=== PATIENT | male | born 1950 | race Caucasian/White ===

== ENCOUNTER → 2017-12-02 01:00 | Outpatient (CLI) | payer MEDICARE, SELFPAY ==
[2017-12-04 17:03] LABS: Testosterone, Free 3.09 ng/dL (3.47-13.0); Testosterone, Total 147 ng/dL (240-950)
== END ==
PROVIDERS: PCP Emergency Medicine; Visit Provider Emergency Medicine
DX: E29.1 Testicular hypofunction (principal)
CPT/HCPCS: 36415; 84402; 84403

== ENCOUNTER 2018-01-05 07:09 | Outpatient (CLI) | payer MEDICARE, SELFPAY ==
[2018-01-05 09:21] LABS: TSH 3.92 uIU/mL (0.358-3.74)
[2018-01-06 09:35] LABS: FSH 26.1 mIU/ml (1.4-18.1)
[2018-01-06 09:48] LABS: LH 5.9 mIU/ml (2-9)
[2018-01-08 12:35] LABS: Testosterone, Free 3.93 ng/dL (3.47-13.0); Testosterone, Total 187 ng/dL (240-950)
== END 2018-01-05 07:29 ==
PROVIDERS: PCP Emergency Medicine; Visit Provider Emergency Medicine
DX: E29.1 Testicular hypofunction (principal)
CPT/HCPCS: 36415; 84402; 84403; 83001; 83002; 84146; 84443

== ENCOUNTER 2018-05-20 00:38 | Outpatient (CLI) | payer MEDICARE, SELFPAY ==
[2018-05-20 08:30] LABS: CREATININE 1.07 mg/dL (0.70-1.30)
[2018-05-20] MEDS: Gadoterate meglumine 20 ML VIAL IVP (08:53)
--- NOTE | 2018-05-20 09:13 | DI.MRI_ITS ---
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 ABNORMALITY OR TUMOR BRAIN MRI: Pre and post contrast MRI of the brain according to the pituitary protocol was performed. There are no priors for comparison. The ventricles and sulci are consistent with the patient's age. There is normal signal in the brain parenchyma. The diffusion weighted images have a normal appearance. No intracranial hemorrhage is seen. There is no acute midline shift or mass effect. 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 There is a normal flow void in the [place]. The pituitary gland has a normal appearance. No evidence of a pituitary mass is seen. The infundibulum and optic chiasm are unremarkable. Following contrast administration, there is homogeneous enhancement of the pituitary gland and infundibulum. No suprasellar mass is seen. No intraparenchymal enhancing lesion or mass is identified. No fluid levels are seen in the visualized paranasal sinuses. IMPRESSION: 1. Normal appearance of the pituitary, sella and suprasellar region. No evidence of a pituitary mass or abnormality. 2. No evidence of an acute infarct or intracranial mass.
== END 2018-05-20 00:58 ==
PROVIDERS: PCP Emergency Medicine; Visit Provider Internal Medicine Endocrinology, Diabetes & Metabolism
DX: E29.1 Testicular hypofunction (principal); Z86.39 Personal history of other endocrine, nutritional and metabolic disease; Z97.0 Presence of artificial eye
CPT/HCPCS: 36415; 70553; 82565

== ENCOUNTER 2018-10-25 02:16 | Outpatient (CLI) | payer MEDICARE, SELFPAY ==
[2018-10-27 12:32] LABS: Testosterone, Total 611 ng/dL (240-950)
== END 2018-10-25 02:36 ==
PROVIDERS: PCP Emergency Medicine; Visit Provider Internal Medicine Endocrinology, Diabetes & Metabolism
DX: Z86.39 Personal history of other endocrine, nutritional and metabolic disease (principal); E29.1 Testicular hypofunction
CPT/HCPCS: 36415; 84403

== ENCOUNTER 2019-01-24 01:03 | Outpatient (CLI) | payer MEDICARE, SELFPAY ==
[2019-01-24 07:39] LABS: HCT 51.7 % (40.0-50.0)
[2019-01-25 10:17] LABS: PSA, Diagnostic 0.9 ng/ml (0-6.5)
== END 2019-01-24 01:23 ==
PROVIDERS: PCP Emergency Medicine; Visit Provider Internal Medicine Endocrinology, Diabetes & Metabolism
DX: E34.9 Endocrine disorder, unspecified (principal)
CPT/HCPCS: 36415; 84153; 85014

== ENCOUNTER 2019-05-16 07:01 | Outpatient (CLI) | payer MEDICARE, SELFPAY ==
[2019-05-16 07:41] LABS: HCT 49.8 % (40.0-50.0)
[2019-05-18 15:09] LABS: Testosterone, Total 379 ng/dL (240-950)
== END 2019-05-16 07:21 ==
PROVIDERS: PCP Emergency Medicine; Visit Provider Internal Medicine Endocrinology, Diabetes & Metabolism
DX: E29.1 Testicular hypofunction (principal)
CPT/HCPCS: 36415; 84403; 85014

== ENCOUNTER 2019-05-19 09:58 | Outpatient (CLI) | payer MEDICARE, SELFPAY | END 2019-05-19 10:18 | PROVIDERS: PCP Emergency Medicine; Visit Provider Emergency Medicine | DX: I48.91 Unspecified atrial fibrillation (principal) | CPT/HCPCS: 93225 ==

== ENCOUNTER 2019-05-20 12:19 | Outpatient (CLI) | payer MEDICARE, SELFPAY ==
--- NOTE | 2019-05-23 08:21 | W.HOLTRPT ---
Date of service: 05/23/19 Time of Service: 08:21 Holter Monitor Report Holter Monitor Note: This is a 1 day Holter monitor ordered for indication of atrial fibrillation. ?The patient was in atrial fibrillation for the entirety of the recording. The maximal heart rate was 232bpm. ?There were 3 episodes of ventricular tachycardia with the longest lasting 7 beats. ?There were rare (less than 1%) single ventricular ectopic beats. ?There were 2 significant pauses the longest lasting 2.85 seconds. ?There were no episodes of high degree heart block.
== END 2019-05-20 12:39 ==
PROVIDERS: PCP Emergency Medicine; Visit Provider Emergency Medicine
DX: I48.91 Unspecified atrial fibrillation (principal)
CPT/HCPCS: 93226

== ENCOUNTER 2019-05-23 01:13 | Outpatient (CLI) | payer MEDICARE, SELFPAY | END 2019-05-23 01:33 | PROVIDERS: PCP Emergency Medicine; Visit Provider Internal Medicine Endocrinology, Diabetes & Metabolism | DX: I48.91 Unspecified atrial fibrillation (principal) | CPT/HCPCS: 93227 ==

== ENCOUNTER 2019-05-25 07:00 | Outpatient (CLI) | payer MEDICARE, SELFPAY ==
[2019-05-25 12:54] LABS: TSH 1.52 uIU/mL (0.36-3.74)
== END 2019-05-25 07:20 ==
PROVIDERS: PCP Emergency Medicine; Visit Provider Emergency Medicine
DX: E03.9 Hypothyroidism, unspecified (principal); I48.91 Unspecified atrial fibrillation
CPT/HCPCS: 36415; 84443

== ENCOUNTER 2019-06-08 02:27 | Outpatient (CLI) | payer MEDICARE, SELFPAY ==
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
== END 2019-06-08 02:47 ==
PROVIDERS: PCP Emergency Medicine; Visit Provider Emergency Medicine
DX: I48.91 Unspecified atrial fibrillation (principal); I51.7 Cardiomegaly; I34.8 Other nonrheumatic mitral valve disorders
CPT/HCPCS: 93306

== ENCOUNTER 2019-06-22 07:55 | Outpatient (CLI) | payer MEDICARE, SELFPAY | END 2019-06-22 08:15 | PROVIDERS: PCP Emergency Medicine; Visit Provider Internal Medicine Cardiovascular Disease | DX: I48.91 Unspecified atrial fibrillation (principal); I10 Essential (primary) hypertension; Z79.01 Long term (current) use of anticoagulants | CPT/HCPCS: 99203; 99214; 93005; 93010 ==

== ENCOUNTER 2019-09-12 02:06 | Outpatient (CLI) | payer MEDICARE, SELFPAY ==
[2019-09-12 07:47] LABS: HCT 47.1 % (40.0-50.0)
[2019-09-15 15:17] LABS: Testosterone, Free 6.72 ng/dL (3.28-12.2); Testosterone, Total 320 ng/dL (240-950)
== END 2019-09-12 02:26 ==
PROVIDERS: PCP Emergency Medicine; Visit Provider Internal Medicine Endocrinology, Diabetes & Metabolism
DX: E29.1 Testicular hypofunction (principal)
CPT/HCPCS: 36415; 84402; 84403; 85027; 85014

== ENCOUNTER → 2019-09-19 09:27 | Outpatient (BNVA) | payer MEDICARE, SELFPAY | PROVIDERS: PCP Emergency Medicine; Referring Provider Emergency Medicine; Visit Provider Internal Medicine Cardiovascular Disease | DX: I48.91 Unspecified atrial fibrillation (principal); I10 Essential (primary) hypertension; E78.5 Hyperlipidemia, unspecified | CPT/HCPCS: 99214 ==

== ENCOUNTER 2019-12-26 02:50 | Outpatient (CLI) | payer MEDICARE, SELFPAY ==
[2019-12-26 08:47] LABS: HCT 48.9 % (40.0-50.0); HGB 17.1 g/dL (13.5-17.5)
[2019-12-26 17:11] LABS: PSA, Screening 0.4 ng/mL (0.0-6.5)
[2019-12-29 12:44] LABS: Testosterone, Free 6.86 ng/dL (3.28-12.2); Testosterone, Total 490 ng/dL (240-950)
== END 2019-12-26 03:10 ==
PROVIDERS: PCP Emergency Medicine; Visit Provider Internal Medicine Endocrinology, Diabetes & Metabolism
DX: E29.1 Testicular hypofunction (principal)
CPT/HCPCS: 36415; 84153; 84402; 84403; 85014; 85018

== ENCOUNTER 2019-12-28 12:09 | Emergency (ER) | payer MEDICARE, SELFPAY ==
[2019-12-28 12:17] VITALS: BP 129/78; PULSE 73; RESP 16; TEMP 36.5; O2SAT 97
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
[2019-12-28] MEDS: Acetaminophen 500 MG TAB 1000 MG PO (13:14)
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
[2019-12-28 14:10] VITALS: BP 117/82; PULSE 92; RESP 16; TEMP 36.5; O2SAT 92
== END 2019-12-28 14:23 | disposition home or self-care (01) ==
LOC: ER 14:36
PROVIDERS: Emergency Provider Emergency Medicine; PCP Emergency Medicine
DX: S13.4XXA Sprain of ligaments of cervical spine, initial encounter (principal); V43.52XA Car driver injured in collision with other type car in traffic accident, initial encounter; I10 Essential (primary) hypertension
CPT/HCPCS: 99283; 72040; L0172

== ENCOUNTER 2019-12-30 13:12 | Outpatient (REF) | payer MEDICARE, SELFPAY ==
[2019-12-30 21:27] LABS: Calculated LDL 119 mg/dL (<100); Cholesterol 186 mg/dL (<200); HDL Cholesterol 34 mg/dL (40-60); TSH 2.38 uIU/mL (0.36-3.74); Triglyceride 166 mg/dL (<150)
== END 2019-12-30 13:32 ==
LOC: LBN ADD 13:12
PROVIDERS: PCP Emergency Medicine; Visit Provider Emergency Medicine
DX: E03.9 Hypothyroidism, unspecified (principal)
CPT/HCPCS: 80061; 84443

== ENCOUNTER → 2020-03-16 10:25 | Outpatient (BNVA) | payer MEDICARE, SELFPAY | PROVIDERS: PCP Emergency Medicine; Referring Provider Emergency Medicine; Visit Provider Physical Therapy Assistant | DX: Z12.11 Encounter for screening for malignant neoplasm of colon (principal); Z86.010 Personal history of colon polyps ==

== ENCOUNTER → 2020-03-19 13:18 | Outpatient (BNVA) | payer MEDICARE, SELFPAY | PROVIDERS: PCP Emergency Medicine; Referring Provider Emergency Medicine; Visit Provider Internal Medicine Cardiovascular Disease | DX: I48.91 Unspecified atrial fibrillation (principal); I10 Essential (primary) hypertension; E78.5 Hyperlipidemia, unspecified; Z01.810 Encounter for preprocedural cardiovascular examination; Z79.01 Long term (current) use of anticoagulants | CPT/HCPCS: 99214 ==

== ENCOUNTER 2020-03-22 04:37 | Outpatient (CLI) | payer MEDICARE, SELFPAY ==
[2020-03-23 22:13] LABS: SARS-CoV-2 RNA Source Nasal/Nares
[2020-03-23 22:14] LABS: SARS-CoV-2 RNA Not Detected (NotDetected)
== END 2020-03-22 04:57 ==
PROVIDERS: PCP Emergency Medicine; Visit Provider Surgery
DX: Z11.59 Encounter for screening for other viral diseases (principal); Z01.818 Encounter for other preprocedural examination
CPT/HCPCS: U0003

== ENCOUNTER 2020-03-26 07:46 | Day surgery (SDC) | payer MEDICARE, SELFPAY ==
--- NOTE | 2020-03-26 06:59 | W.COLOREPORT ---
Date of service: 03/26/20 Time of Service: 10:11 Colonoscopy Report Date of procedure: 03/26/20 Pre-op diagnosis general: Colon Cancer Screening Post-op diagnosis procedure note: other (one small polyp) Procedure: Colonoscopy with polypectomy Surgeon: Manda Del Angel Anesthesia proc note operative: other (General/ASA 2/Grace Mariee CRNA) Estimated blood loss (mL): 3 Pathology: other (rectal polyp) Complications: None Disposition: same day Indications: The patient is here for Colonoscopy pre-op. His last screening was 10+ years ago and was remarkable for polyps. He has no family history of colon cancer. He has not had any bowel habit changes. -Discussed colonoscopy bowel prep as well as the procedure. Discussed possible complications of the procedure to include bleeding, pain, perforation, missed small lesion/polyp, sore throat, aspiration and adverse reaction to the medications. Questions were answered to patient?s satisfaction. Also, spoke with his Jesse regarding her questions and concerns. No guarantees were implied or given Prep: Miralax/Dulcolax Procedure Start Time: : Procedure End Time: 10:43 Retraction Time: 23 minutes Findings: one small rectal polyp Procedure Description: After informed consent was obtained the patient was taken to the procedure room and placed in a left decubitous position. Monitors were applied and a time out was done. The patients name, date of , procedure, allergies to medications and metal in their body was reviewed. The patient was then sedated. Once sedated and comfortable a rectal exam was done. External exam was normal. Internal exam revealed a normal sphincter tone and no palpable masses. The prostate felt smooth. The scope was then introduced and retro-flexed. No internal hemorrhoids were identified. The scope was then advanced to the cecum without difficulty. The ileocecal valve and appendiceal orifice were identified. The prep was adequate. The scope was then slowly retracted over 23 minutes back into the rectum. One polyp was removed with cold forceps in the rectum. There were no diverticula. The scope was removed and the patient was woken up and taken back to Same day surgery in stable condition. The patient tolerated the procedure well and there were no immediate complications. Follow up: Follow up colonoscopy recommendation will depend on the pathology results
--- NOTE | 2020-03-26 07:00 | W.PM.DSUDISC ---
Discharge Plan Disposition Patient Disposition: HOME Condition: Good Discharge Details Reason For Visit: Colon Cancer Screening Attending Provider: Manda Del Angel Primary Care Provider: Alejo Ceja Home Meds and New Rx's Prescriptions: Continued levothyroxine 50 mcg tablet 50 mcg PO DAILY Qty: 90 RF: 4 lisinopril 20 mg tablet 20 mg PO DAILY Qty: 90 RF: 4 Eliquis 5 mg tablet 5 mg PO BID Qty: 60 RF: 6 aspirin [Aspirin Low-Strength] 81 MG tablet,chewable 81 mg PO DAILY RF: 0 multivitamin [Daily Multi-Vitamin] 1 EACH tablet 1 ea PO DAILY RF: 0 ascorbic acid (vitamin C) [Vitamin C] 500 MG tablet 500 mg PO DAILY RF: 0 testosterone cypionate 200 mg/mL oil See Rx Instructions IM QWEEK RF: 0 pravastatin 40 mg tablet 40 mg PO DAILY Qty: 90 RF: 3 metoprolol succinate 100 mg tablet extended release 24 hr 100 mg PO DAILY Qty: 90 RF: 12 loratadine 10 MG tablet 10 mg PO DAILY RF: 0 Discontinued polyethylene glycol 3350 17 gram/dose powder 238 g PO ONCE Qty: 238 RF: 0 bisacodyl [Dulcolax (bisacodyl)] 5 mg tablet,delayed release (DR/EC) 5 mg PO ONCE Qty: 4 RF: 0 Discharge Instructions Instructions: Colorectal Polyps (DC) Additional Instructions: Findings: one small polyp Follow up: will depend on final pathology result. You will receive a letter in the mail with the recommendations Please call if you develop: fevers >101.5 Nausea or Vomiting Abdominal pain that is not transient DAY SURGERY UNIT POST ENDOSCOPY INSTRUCTIONS 1. Because there will be medication in your system for the next 24 hours, you may feel a little sleepy. Your coordination will be affected. Therefore: a. Do not drive or operate dangerous equipment for 24 hours. b. Do not drink alcohol beverages for 24 hours (not even beer). c. Plan to go home and rest for the day. 2. Generally there are no restrictions on your activity after a day or so has gone by, but you may feel a bit fatigued for a few days. 3 After you arrive home you may have a light meal and return to a normal diet as you can tolerate it without feeling sick to your stomach. 4. After surgery, you may feel pain or discomfort. This should be only transient, but if it persists please contact your doctor. 5. If there are any questions regarding the findings of your procedure, please feel free to contact your doctor. 6. If you are unable to contact your doctor with a problem, contact the hospital at [phone]. 7. Continue all your regular medications unless directed otherwise. I understand the above instructions and have no questions. Signature of Patient or Responsible Adult Escort Date/Time Name of Responsible Adult Escort Signature of Nurse Date/Time Activity:: Activity as Tolerated Diet:: As Tolerated Discharge Orders Discharge Orders: Discharge Order (Routine); Ordered 03/26/20 Ordered By: Manda Del Angel
[2020-03-26 08:35] VITALS: BP 141/73; PULSE 76; RESP 20; TEMP 35.4; O2SAT 97
[2020-03-26] MEDS: Lactated Ringers 1,000 ML 80 ML IV (09:00)
--- NOTE | 2020-03-26 10:43 | BOWEL_PTH ---
PATIENT: Dennis Staton LOC: [facility] U#:[id number] AGE/SX: 70/M ROOM: RE03/26/[address]: Manda Del Angel MD : 1950 BED: DIS: 03/26/2020 SPEC #: [id number] RECD: 03/26/20 12:55 STATUS: YOUSUF REQ #: [id number] DEVON: 03/26/20 10:[address]: Manda Del Angel DEPT: Surgical Specimen RECD BY: Roxy Wilson ENTERED: 03/26/20 12:56 SP TYPE: Bowel OTHR DR: Alejo Ceja DO Tissues: 1 - BIOPSY BOWEL Procedures: GROSS AND MICRO LEVEL 4 Comments: [id number]
[2020-03-26 11:23] VITALS: BP 118/86; PULSE 87; RESP 18; TEMP 36.2; O2SAT 97
== END 2020-03-26 11:53 | disposition home or self-care (01) ==
LOC: SUR 07:46
PROVIDERS: PCP Emergency Medicine; Visit Provider Surgery
PROC: 0DJD8ZZ Inspection of Lower Intestinal Tract, Via Natural or Artificial Opening Endoscopic (ICD-10-PCS; CPT 45378; principal; 2020-03-26 10:00)
DX: Z12.11 Encounter for screening for malignant neoplasm of colon (principal); K62.1 Rectal polyp
CPT/HCPCS: 45380; 88305; J2001; J2704

== ENCOUNTER 2020-05-14 02:37 | Outpatient (CLI) | payer MEDICARE, SELFPAY ==
[2020-05-14 08:19] LABS: Abs Immature Grans 0.04 10^3/uL (0.0-0.06); Absolute Basophil Count 0.13 10^3/uL (0.0-0.2); Absolute Eosinophil Count 0.21 10^3/uL (0.0-0.7); Absolute Monocyte Count 0.57 10^3/uL (0.1-0.8); Absolute Neutrophil Count 4.78 10^3/uL (1.2-6.7); Basophils % 1.8; Eosinophils % 2.9; HCT 49.5 % (40.0-50.0); HGB 16.9 g/dL (13.5-17.5); Immature Grans % 0.5; Lymphocytes % 21.8; MCH 30.5 pg (27.0-33.0); MCHC 34.1 % (32.0-36.0); MCV 89.4 fL (80-95); Monocytes % 7.8; Neutrophils % 65.2; Nucleated RBC 0 %; Platelet Count 171 10^3/uL (130-400); RBC 5.54 10^6/uL (4.36-5.78); RDW 11.9 % (11.8-14.1); RDW-SD 38.8 fL; WBC 7.33 10^3/uL (4.4-10.8)
[2020-05-14 09:16] LABS: Vitamin D 25 Total 34.8 ng/ml (30-100)
[2020-05-14 09:23] LABS: ALT 27 U/L (16-63); AST 29 U/L (15-37); Albumin 4.3 g/dL (3.4-5.0); Alkaline Phosphatase 66 U/L (46-116); Anion Gap 7.2 mmol/L (3-11); BUN 12 mg/dL (7-18); Bilirubin, Total 1.5 mg/dL (0.2-1.0); CO2 29.8 mmol/L (21.0-32.0); CREATININE 1.02 mg/dL (0.70-1.30); Calcium 8.7 mg/dL (8.5-10.1); Calculated LDL 98 mg/dL (<100); Chloride 101 mmol/L (98-107); Cholesterol 166 mg/dL (<200); Glucose 132 mg/dL (74-106); HDL Cholesterol 38 mg/dL (40-60); Potassium 4.8 mmol/L (3.5-5.1); Sodium 138 mmol/L (136-145); TSH 4.22 uIU/mL (0.36-3.74); Total Protein 7.4 g/dL (6.4-8.2); Triglyceride 150 mg/dL (<150)
[2020-05-14 09:41] LABS: FREE T4 0.93 ng/dL (0.76-1.46)
[2020-05-14 17:06] LABS: PSA, Screening 0.5 ng/mL (0.0-6.5)
[2020-05-17 15:44] LABS: Testosterone, Free 8.35 ng/dL (3.28-12.2); Testosterone, Total 348 ng/dL (240-950)
== END 2020-05-14 02:57 ==
PROVIDERS: PCP Emergency Medicine; Visit Provider Internal Medicine Endocrinology, Diabetes & Metabolism
DX: E03.9 Hypothyroidism, unspecified (principal); E78.01 Familial hypercholesterolemia; E55.9 Vitamin D deficiency, unspecified; R73.09 Other abnormal glucose; R53.82 Chronic fatigue, unspecified; E29.1 Testicular hypofunction; Z85.46 Personal history of malignant neoplasm of prostate
CPT/HCPCS: 36415; 80053; 80061; 82306; 84153; 84402; 84403; 83036; 84439; 84443; 85025

== ENCOUNTER 2020-08-29 03:35 | Outpatient (CLI) | payer MEDICARE, SELFPAY ==
[2020-08-29 07:43] LABS: HCT 46.3 % (40.0-50.0); HGB 16.2 g/dL (13.5-17.5)
[2020-08-29 07:53] LABS: Hemoglobin A1C 5.6 % (<5.7)
== END 2020-08-29 03:36 | disposition home or self-care (01) ==
LOC: LBO 03:35
PROVIDERS: PCP Emergency Medicine; Visit Provider Internal Medicine Endocrinology, Diabetes & Metabolism
DX: E03.9 Hypothyroidism, unspecified (principal); E29.1 Testicular hypofunction; E55.9 Vitamin D deficiency, unspecified; E78.01 Familial hypercholesterolemia; R53.82 Chronic fatigue, unspecified
CPT/HCPCS: 36415; 83036; 84443; 85014; 85018

== ENCOUNTER 2021-02-08 03:42 | Outpatient (CLI) | payer MEDICARE, SELFPAY ==
--- NOTE | 2021-02-08 08:00 | DI.US_ITS ---
Exam(s) US ABDOMEN EXAM: US ABDOMEN CLINICAL HISTORY: fatty liver,K76.0 TECHNIQUE: Ultrasound performed using standard protocol. COMPARISON: US US ECHOCARDIOGRAM from 06/08/2019 FINDINGS: Ultrasound examination of the abdomen was performed according to the usual protocol. There was limit ed visualization of portions of the liver due to overlying bowel gas and the patient's body habitus. Liver appears somewhat echogenic consistent with hepatic steatosis. There is no evidence of cholelithiasis or biliary dilatation. Gallbladder wall is of normal thicknes s. Pancreas appears intact as visualized. Spleen is unremarkable in appearance. Kidneys are normal in size and shape with no evidence of hydro nephrosis nephrolithiasis or renal mass. I would note that there is limited visualization of both ki dneys due to overlying bowel gas. Abdominal aorta and IVC are of normal diameter. IMPRESSION: Findings consistent with hepatic steatosis. No evidence of cholelithiasis. DATA REPOSITORY:
== END 2021-02-08 04:02 ==
PROVIDERS: PCP Emergency Medicine; Visit Provider Emergency Medicine
DX: K76.0 Fatty (change of) liver, not elsewhere classified (principal)
CPT/HCPCS: 76700

== ENCOUNTER 2021-02-26 03:33 | Outpatient (CLI) | payer MEDICARE, SELFPAY ==
[2021-02-26 08:59] LABS: HCT 41.2 % (40.0-50.0); HGB 14.3 g/dL (13.5-17.5)
[2021-02-26 09:32] LABS: Hemoglobin A1C 5.7 % (<5.7)
[2021-02-26 09:36] LABS: FREE T4 0.89 ng/dL (0.76-1.46); TSH 4.73 uIU/mL (0.36-3.74)
[2021-02-28 00:34] LABS: Vitamin D 25 Total 32.6 ng/mL (30-100)
[2021-03-05 13:42] LABS: Testosterone, Free 49.2; Testosterone, Total 327
== END 2021-02-26 03:34 | disposition home or self-care (01) ==
LOC: LBO 03:33
PROVIDERS: PCP Emergency Medicine; Visit Provider Internal Medicine Endocrinology, Diabetes & Metabolism
DX: E29.1 Testicular hypofunction (principal); E03.9 Hypothyroidism, unspecified; E55.9 Vitamin D deficiency, unspecified; E78.5 Hyperlipidemia, unspecified; R73.09 Other abnormal glucose
CPT/HCPCS: 36415; 82306; 84402; 84403; 83036; 84439; 84443; 85014; 85018

== ENCOUNTER → 2021-04-04 09:31 | Outpatient (BNVA) | payer MEDICARE, SELFPAY | PROVIDERS: PCP Emergency Medicine; Referring Provider Emergency Medicine; Visit Provider Internal Medicine Cardiovascular Disease | DX: I48.19 Other persistent atrial fibrillation (principal); I10 Essential (primary) hypertension; E78.5 Hyperlipidemia, unspecified; Z79.01 Long term (current) use of anticoagulants | CPT/HCPCS: 99214; 99213 ==

== ENCOUNTER 2021-07-29 03:37 | Outpatient (CLI) | payer MEDICARE, SELFPAY ==
[2021-07-29 13:49] LABS: Hemoglobin A1C 5.7 % (<5.7)
[2021-07-29 14:13] LABS: Vitamin D 25 Total 32.1 ng/mL (30-100)
== END 2021-07-29 03:38 | disposition home or self-care (01) ==
LOC: LBO 03:37
PROVIDERS: PCP Nurse Practitioner Family; Visit Provider Internal Medicine Endocrinology, Diabetes & Metabolism
DX: E55.9 Vitamin D deficiency, unspecified (principal); E03.9 Hypothyroidism, unspecified; E29.1 Testicular hypofunction; R73.09 Other abnormal glucose
CPT/HCPCS: 36415; 82306; 83036

== ENCOUNTER 2022-01-03 02:15 | Outpatient (CLI) | payer MEDICARE, SELFPAY ==
[2022-01-03 08:56] LABS: CREATININE 1.3 mg/dL (0.70-1.30); Estimated GFR 58.37 (mL/min/1.73m2); Potassium 4.3 mmol/L (3.5-5.1)
[2022-01-03 09:13] LABS: Hemoglobin A1C 5.8 % (<5.7)
== END 2022-01-03 02:16 | disposition home or self-care (01) ==
LOC: LBO 02:15
PROVIDERS: PCP Nurse Practitioner Family; Visit Provider Internal Medicine Endocrinology, Diabetes & Metabolism
DX: I10 Essential (primary) hypertension (principal); R73.03 Prediabetes; E29.1 Testicular hypofunction
CPT/HCPCS: 36415; 82565; 83036; 84132; 84443

== ENCOUNTER 2022-04-03 08:54 | Outpatient (CLI) | payer MEDICARE, SELFPAY ==
--- NOTE | 2022-04-03 08:45 | RT.EKG_ITS ---
APPROVED REPORT Exam: Resting ECG Reason for Exam: afib Patient Location: O HR:83 bpm ECG Measurements Heart Rate 83 AXIS WA [id number] P [id number] QRSd 81 QRS -11 QT 375 T 45 QTc 441 Conclusion Atrial fibrillation...V-rate 62-106, irreg A-activity Chest leads misplaced Otherwise normal EKG
== END 2022-04-03 08:55 | disposition home or self-care (01) ==
LOC: DI.CARD 08:55
PROVIDERS: PCP Nurse Practitioner Family; Visit Provider Internal Medicine Cardiovascular Disease
DX: I48.91 Unspecified atrial fibrillation (principal)
CPT/HCPCS: 93010

== ENCOUNTER → 2022-04-03 09:10 | Outpatient (BNVA) | payer MEDICARE, SELFPAY | PROVIDERS: PCP Nurse Practitioner Family; Referring Provider Nurse Practitioner Family; Visit Provider Internal Medicine Cardiovascular Disease | DX: I48.21 Permanent atrial fibrillation (principal); Z79.01 Long term (current) use of anticoagulants; I10 Essential (primary) hypertension | CPT/HCPCS: 93005; 99213 ==

== ENCOUNTER 2022-09-11 02:42 | Outpatient (CLI) | payer MEDICARE, SELFPAY ==
[2022-09-11 07:32] LABS: Abs Immature Grans 0.02 10^3/uL (0.0-0.06); Absolute Basophil Count 0.08 10^3/uL (0.0-0.2); Absolute Eosinophil Count 0.25 10^3/uL (0.0-0.7); Absolute Lymphocyte Count 1.44 10^3/uL (1.2-3.4); Absolute Monocyte Count 0.52 10^3/uL (0.1-0.8); Basophils % 1.2; Eosinophils % 3.8; HCT 41.4 % (40.0-50.0); HGB 14.2 g/dL (13.5-17.5); Immature Grans % 0.3; Lymphocytes % 22.1; MCH 30.1 pg (27.0-33.0); MCHC 34.3 % (32.0-36.0); MCV 88 fL (80-95); MPV 9.7 fL (8.0-11.0); Neutrophils % 64.6; Platelet Count 164 10^3/uL (130-400); RBC 4.72 10^6/uL (4.36-5.78); RDW 12.1 % (11.8-14.1); RDW-SD 38.5 fL; WBC 6.51 10^3/uL (4.4-10.8)
[2022-09-11 08:17] LABS: Hemoglobin A1C 5.6 % (<5.7)
[2022-09-11 08:26] LABS: FREE T4 0.87 ng/dL (0.76-1.46); TSH 3.98 uIU/mL (0.36-3.74)
[2022-09-17 12:03] LABS: Testosterone, Free 10.1 ng/dL (3.28-12.2); Testosterone, Total 418 ng/dL (240-950)
== END 2022-09-11 02:43 | disposition home or self-care (01) ==
LOC: LBO 02:43
PROVIDERS: PCP Nurse Practitioner Family; Visit Provider Internal Medicine Endocrinology, Diabetes & Metabolism
DX: R73.03 Prediabetes (principal); E29.1 Testicular hypofunction; E55.9 Vitamin D deficiency, unspecified; E03.9 Hypothyroidism, unspecified; R35.0 Frequency of micturition; N40.0 Benign prostatic hyperplasia without lower urinary tract symptoms
CPT/HCPCS: 36415; 82306; 84153; 84402; 84403; 83036; 84439; 84443; 85025

== ENCOUNTER → 2023-03-30 09:33 | Outpatient (BNVA) | payer MEDICARE, SELFPAY | PROVIDERS: PCP Nurse Practitioner Family; Referring Provider Nurse Practitioner Family; Visit Provider Internal Medicine Cardiovascular Disease | DX: I48.21 Permanent atrial fibrillation (principal); Z79.01 Long term (current) use of anticoagulants; I10 Essential (primary) hypertension | CPT/HCPCS: 99214 ==

== ENCOUNTER 2023-10-16 02:47 | Outpatient (CLI) | payer MEDICARE, SELFPAY ==
[2023-10-16 08:14] LABS: HCT 41.2 % (40.0-50.0); HGB 14.3 g/dL (13.5-17.5)
[2023-10-16 08:40] LABS: Hemoglobin A1C 5.8 % (<5.7)
[2023-10-16 08:54] LABS: CREATININE 1.2 mg/dL (0.70-1.30); Calculated LDL 69 mg/dL (<100); Cholesterol 136 mg/dL (<200); Estimated GFR 63.46 (mL/min/1.73m2); HDL Cholesterol 50 mg/dL (40-60); Potassium 4.4 mmol/L (3.5-5.1); Triglyceride 87 mg/dL (<150)
[2023-10-16 08:58] LABS: TSH (W/Ref FT4) 3.87 uIU/mL (0.36-3.74)
[2023-10-16 10:14] LABS: FREE T4 0.86 ng/dL (0.76-1.46)
[2023-10-19 15:13] LABS: PSA, Ultrasensitive 0.55 ng/mL (<= 6.5)
[2023-10-22 12:44] LABS: Testosterone, Free 8.52 ng/dL (3.28-12.2); Testosterone, Total 324 ng/dL (240-950)
== END 2023-10-16 02:48 | disposition home or self-care (01) ==
LOC: LBO 02:47
PROVIDERS: PCP Nurse Practitioner Family; Visit Provider Internal Medicine Endocrinology, Diabetes & Metabolism
DX: I10 Essential (primary) hypertension (principal); Z13.6 Encounter for screening for cardiovascular disorders; R73.03 Prediabetes; E29.1 Testicular hypofunction; R35.0 Frequency of micturition
CPT/HCPCS: 36415; 80061; 84153; 84402; 84403; 82565; 83036; 84132; 84439; 84443; 85014; 85018

== ENCOUNTER 2023-12-02 13:50 | Outpatient (REF) | payer MEDICARE, SELFPAY ==
[2023-12-02 21:03] LABS: Bilirubin Small (Negative); Blood Large (Negative); Clarity Cloudy (Clear); Glucose Negative (Negative); Ketones Trace mg/dL (Negative); Leukocyte Esterase Negative (Negative); Nitrite Positive (Negative); Specific Gravity >= 1.030 (1.005-1.025); Urobilinogen 0.2 mg/dL (Up to 0.2)
[2023-12-02 21:23] LABS: Bacteria Few HPF (Negative); C & S Indicated? C&S Done As Ordered; Casts Negative LPF (Negative); Crystals Rare Calcium Oxalate HPF (Negative); Epithelial Cells Rare HPF (Negative); Mucus Negative (Negative); Other Cells Rare Transitional (Negative); RBC >50 HPF (0-2)
== END 2023-12-02 13:51 | disposition home or self-care (01) ==
LOC: LBN 13:50
PROVIDERS: PCP Nurse Practitioner Family; Visit Provider Physician Assistant
DX: R31.9 Hematuria, unspecified (principal); R39.9 Unspecified symptoms and signs involving the genitourinary system
CPT/HCPCS: 81003; 81015; 87086

== ENCOUNTER 2023-12-02 15:47 | Outpatient (CLI) | payer MEDICARE, SELFPAY ==
[2023-12-02 16:49] LABS: Abs Immature Grans 0.04 10^3/uL (0.0-0.06); Absolute Basophil Count 0.09 10^3/uL (0.0-0.2); Absolute Eosinophil Count 0.18 10^3/uL (0.0-0.7); Absolute Lymphocyte Count 1.54 10^3/uL (1.2-3.4); Absolute Monocyte Count 0.61 10^3/uL (0.1-0.8); Absolute Neutrophil Count 4.63 10^3/uL (1.2-6.7); Basophils % 1.3 %; Eosinophils % 2.5 %; HCT 41.8 % (40.0-50.0); HGB 14.7 g/dL (13.5-17.5); Immature Grans % 0.6 %; Lymphocytes % 21.7 %; MCH 31.3 pg (27.0-33.0); MCHC 35.2 % (32.0-36.0); MCV 89 fL (80-95); Monocytes % 8.6 %; Neutrophils % 65.3 %; Platelet Count 185 10^3/uL (130-400); RDW 12.1 % (11.8-14.1); RDW-SD 39.8 fL; WBC 7.09 10^3/uL (4.4-10.8)
[2023-12-02 17:05] LABS: Anion Gap 13.7 mmol/L (3-11); BUN 24 mg/dL (7-18); CO2 26.3 mmol/L (21.0-32.0); CREATININE 1.6 mg/dL (0.70-1.30); Calcium 9.3 mg/dL (8.5-10.1); Chloride 108 mmol/L (98-107); Estimated GFR 44.93 (mL/min/1.73m2); Glucose 168 mg/dL (74-106); Potassium 4.4 mmol/L (3.5-5.1); Sodium 148 mmol/L (136-145)
[2023-12-02 17:30] LABS: INR 1.1 (0.9-1.1); PTT Activated 27.2 sec (23.6-32.8); Prothrombin Time 11.1 sec (9.1-11.1)
== END 2023-12-02 15:48 | disposition home or self-care (01) ==
LOC: LBO 15:48
PROVIDERS: PCP Nurse Practitioner Family; Visit Provider Physician Assistant
DX: R31.9 Hematuria, unspecified (principal)
CPT/HCPCS: 36415; 80048; 85025; 85610; 85730

== ENCOUNTER → 2023-12-03 05:35 | Outpatient (CLI) | payer MEDICARE, SELFPAY ==
--- NOTE | 2023-12-03 08:15 | DI.CT_ITS ---
Exam(s) CT ABDOMEN PELVIS WO/W EXAM: CT ABDOMEN PELVIS WO/W CLINICAL HISTORY: hematuria, asymptomatic, R31.9. TECHNIQUE: Imaging Protocol: Axial computed tomography images with coronal and sagittal reformatted images were created and reviewed. Images were performed from the lung bases through the ischial tuberosities before IV contrast and fol lowing IV contrast using a 70 second delay, followed by 7 minutes delayed images. CONTRAST MATERIAL: Intravenous: Omnipaque 350 Contrast volume:100 cc Oral: no COMPARISON: No exams were available for comparison FINDINGS: ABDOMEN: Lung Bases: The heart is enlarged. Liver: Normal density. No measurable mass. Gallbladder and biliary tract: No radiodense calculus or dilation. Pancreas: Normal density, no abnormal calcifications or inflammatory process. Spleen: Normal. Kidneys: Normal size, contour and axis. No radiodense stones or obstructive uropathy. No suspicious m asses seen. Adrenal glands: No masses seen. Lymph nodes: Within normal limits. Abdominal Aorta: Abdominal portion non-dilated. Soft tissues: Unremarkable. PELVIS: Bladder: No gross wall thickening. No evidence of a mass.No evidence of calculi. Bowel: No obstruction or bowel wall thickening. Appendix normal. Peritoneal cavity: No ascites, collection or mesenteric inflammatory response. Soft tissues: Bones: Unremarkable for age.. Reproductive organs: Prostate mildly enlarged and impresses mildly on the base of the bladder. IMPRESSION: No suspicious renal mass. No evidence of urinary tract calculi or hydronephrosis. Mildly enlarged prostate which mildly impresses on the base of the bladder. No evidence of bladder m ass. RADIATION DOSE DELIVERED: Total DLP DATA REPOSITORY: All CT scans at this facility are submitted to the National Radiology Data Registry (NRDR) Dose Index Registry (DIR) with the [employer] (ACR). RADIATION OPTIMIZATION: All CT scans at this facility use at least one of these dose optimization te chniques: automated exposure control; mA and/or kV adjustment per patient size (includes targeted exa ms where dose is matched to clinical indication); or iterative reconstruction.
[2023-12-03] MEDS: Omnipaque 350 MG/ML 100 ML BTL IJ (12:36)
== END ==
PROVIDERS: PCP Nurse Practitioner Family; Visit Provider Physician Assistant
DX: R31.9 Hematuria, unspecified (principal); N40.0 Benign prostatic hyperplasia without lower urinary tract symptoms
CPT/HCPCS: 36415; 80048; 74178; J3490

== ENCOUNTER 2023-12-03 15:35 | Outpatient (CLI) | payer MEDICARE, SELFPAY ==
[2023-12-03 11:43] LABS: Anion Gap 7.6 mmol/L (3-11); BUN 18 mg/dL (7-18); CO2 28.4 mmol/L (21.0-32.0); CREATININE 1.4 mg/dL (0.70-1.30); Calcium 8.9 mg/dL (8.5-10.1); Chloride 105 mmol/L (98-107); Estimated GFR 52.74 (mL/min/1.73m2); Glucose 122 mg/dL (74-106); Potassium 4.5 mmol/L (3.5-5.1); Sodium 141 mmol/L (136-145)
== END 2023-12-03 15:36 | disposition home or self-care (01) ==
LOC: LBO 15:37
PROVIDERS: PCP Nurse Practitioner Family; Visit Provider Physician Assistant
DX: R31.9 Hematuria, unspecified (principal)
CPT/HCPCS: 36415; 80048

== ENCOUNTER 2023-12-07 21:28 | Outpatient (REF) | payer MEDICARE, SELFPAY ==
[2023-12-07 22:16] LABS: Bilirubin Negative (Negative); Blood Large (Negative); Clarity Clear (Clear); Glucose Negative (Negative); Ketones Negative (Negative); Leukocyte Esterase Negative (Negative); Nitrite Negative (Negative); Urobilinogen 0.2 mg/dL (Up to 0.2); pH 5.5 (5-8)
[2023-12-07 22:22] LABS: Bacteria Negative HPF (Negative); C & S Indicated? No; Crystals Negative HPF (Negative); Epithelial Cells Negative HPF (Negative); Mucus Negative (Negative); RBC 20-50 HPF (0-2); WBC Negative HPF (0-5)
== END 2023-12-07 21:29 | disposition home or self-care (01) ==
LOC: LBN 21:28
PROVIDERS: PCP Nurse Practitioner Family; Visit Provider Nurse Practitioner Family
DX: R31.0 Gross hematuria (principal)
CPT/HCPCS: 81003; 81015

== ENCOUNTER 2024-02-01 02:14 | Outpatient (CLI) | payer MEDICARE, SELFPAY ==
--- NOTE | 2024-02-01 07:00 | DI.US_ITS ---
Exam(s) US AAA SCREENING EXAM: US AAA SCREENING CLINICAL HISTORY: Screening,z72.0,tobacco use COMPARISON: CT CT ABDOMEN PELVIS WO/W from 12/03/2023 FINDINGS: Abdominal Aorta: Proximal: 2.7 cm Mid: 2.4 cm Distal: 2.1 cm Iliacs: Right: 1.1 cm Left: 1.3 cm IMPRESSION: No evidence of abdominal aortic aneurysm. DATA REPOSITORY:
== END 2024-02-01 02:34 ==
LOC: DI 02:14
PROVIDERS: PCP Nurse Practitioner Family; Visit Provider Nurse Practitioner Family
DX: Z72.0 Tobacco use (principal); Z13.6 Encounter for screening for cardiovascular disorders
CPT/HCPCS: 76706

== ENCOUNTER → 2024-03-15 12:40 | Outpatient (BNVA) | payer MEDICARE, SELFPAY | PROVIDERS: PCP Nurse Practitioner Family; Referring Provider Nurse Practitioner Family; Visit Provider Nurse Practitioner Gerontology | DX: R31.0 Gross hematuria (principal) | CPT/HCPCS: 81003; 99215 ==

== ENCOUNTER 2024-03-21 01:04 | Outpatient (CLI) | payer MEDICARE, SELFPAY ==
--- NOTE | 2024-03-21 13:30 | DI.US_ITS ---
APPROVED REPORT EXAM: Comprehensive 2D, Doppler, and color-flow Echocardiogram Patient Location: Out-Patient Indications: LV function, MR, permanent atrial fibrillation Conclusion Mild concentric left ventricular hypertrophy ejection fraction is 65%. Wall motion is normal Normal right ventricular size and function Mildly dilated left atrium. Right atrial size is normal There are no structural valvular abnormalities Mild mitral regurgitation Trace aortic regurgitation Wall motion Left Ventricle Left ventricular cavity is small. The left ventricular systolic function is normal. The left ventricu lar ejection fraction is within the normal range. Mild concentric left ventricular hypertrophy. There is normal LV segmental wall motion. There is no ventricular septal defect visualized. LVEF is 65%. Right Ventricle The right ventricle is normal size. The right ventricular systolic function is normal. Atria The left atrium is mildly dilated The right atrium size is normal. The interatrial septum is intact w ith no evidence for an atrial septal defect. Aortic Valve The aortic valve is normal in structure. There is no aortic valvular stenosis. Trace aortic regurgita tion. Mitral Valve The mitral valve is normal in structure. No evidence of mitral valve stenosis. Mild mitral regurgitat ion. Tricuspid Valve The tricuspid valve is normal in structure. There is no tricuspid valve stenosis. Trace tricuspid reg urgitation. Pulmonic Valve The pulmonary valve is normal in structure. There is no pulmonic valvular stenosis. Trace pulmonic re gurgitation. Great Vessels The aortic root is normal in size. The ascending aorta is normal in size. Aortic arch is normal in ca liber. IVC is normal in size and collapses >50% with inspiration. Pericardium There is no pericardial effusion. 2D Dimensions IVSD d PLAX 1.44 cm M: 0.6-1.2 Ao Root d 3.23 cm M: 3.1 - 3.7 LVPW d PLAX 1.36 cm M: 0.6 - 1.2 Ao Asc Diam d 3.33 cm M: 2.6 - 3.4 LVID d PLAX 3.93 cm M: 4.2 - 5.8 LVDs 2.62 cm M: 2.5 - 4.0 LV EF Teichholz 62.7 % FS 33.36 % LV EDV (Teich) 67.2 mL LV ESV (Teich) 25.1 mL Stroke Vol Index (Teich) 19.42 M-Mode TAPSE 1.84 cm (M/F) >1.7 Auto EF LV EDV A4C 95.1 mL LV EDV A2C 77.2 mL LV EDV BP 86.2 mL LV ESV A4C 34.4 mL LV ESV A2C 27.6 mL LV ESV BP 30.8 mL LVEF(%) A4C 63.9 % LVEF(%) A2C 64.2 % LVEF(%) BP 64.3 % LV SV A4C 60.7 ml LV SV A2C 49.6 ml LV SV BP 55.5 ml LV CO A4C 6.3 L/min LV CO A2C 4.1 L/min LV CO BP 5.2 L/min HR A4C 104.05 BPM HR A2C 82.20 BPM LV EDV Index (BP) LA Volume LA Length A4C 5.6 cm LA Length A2C 6.1 cm LA Area A4C s 17.66 cm2 LA Area A2C s 23.37 cm2 LA Vol A4C A-L 47.28 mL LA Vol A2C A-L 75.84 mL LA Vol Biplane A-L 62.6 mL LA Vol/BSA A4C A-L LA Vol/BSA A2C A-L LA Vol/BSA BP A-L 28.8 mL/m2 LA Vol A4C MOD 43.7 mL LA Vol A2C MOD 74.2 mL LA Vol BP MOD 59.3 mL RA Volume RA Area A4C 11.6 cm2 RA ESV A4C (A-L) 20.3mL RA Vol/BSA A4C A-L RA Length A4C 5.6 cm RA ESV A4C (MOD) 19.8mL LV Diastology MV E' medial 0.118 (>0.07 m/s) MV E Vmax 0.96 (0.4-1.3 m/s) MV E' lateral 0.146 (>0.1 m/s) Aortic Valve AoV Vmax 1.03 m/s LVOT Vmax 0.87 m/s AoV Peak Grad 4.2 mmHg LVOT Peak Grad 3.0 mmHg AoV Area (Vmax) 2.58 cm2 LVOT VTI 0.165 m AoV VTI 0.221 m LVOT Mean Grad 1.3 mmHg AoV Mean Nolberto. 0.72 m/s LVOT SV 50.32 mL AoV Mean Grad 2.3 mmHg LVOT Diam s 1.95 cm AoV Area (VTI) 2.27 cm2 AV Regurg Peak Gr. 4.21 mmHg Velocity Ratio 0.84 Mitral Valve MV Vmax TIPS 0.86 m/s MR Vmax 4.26 m/s MV Mean Grad 1.2 (<2mmHg) MR VTI 1.404 m MV VTI 0.179 m MR Peak Grad 72.5 mmHg MR Mean Grad 52.2 mmHg MR PISA Radius 0.41 cm MR Aliasing Velocity 0.30 m/s Pulmonary Valve PV Vmax 1.22 (0.5-1.5 m/s) RVOT Vmax 0.51 m/s PV Peak Grad 6.0 mmHg RVOT Peak Gr. 1.1 mmHg PV Mean Nolberto 0.72 m/s RVOT VTI 0.101 m PV Mean Grad 2.5 mmHg RVOT Mean Gr. 0.6 mmHg Tricuspid Valve RA Pressure 3.00 mmHg TR Vmax 2.80 m/s TR Peak Grad 31.3 mmHg RVSP (TR) 34.3 mmHg
== END 2024-03-21 01:24 ==
LOC: DI 01:05
PROVIDERS: PCP Nurse Practitioner Family; Visit Provider Internal Medicine Cardiovascular Disease
DX: I51.7 Cardiomegaly (principal)
CPT/HCPCS: 93306

== ENCOUNTER 2024-03-28 08:01 | Outpatient (CLI) | payer MEDICARE, SELFPAY ==
--- NOTE | 2024-03-28 08:00 | RT.EKG_ITS ---
APPROVED REPORT Exam: Resting ECG Reason for Exam: afib Patient Location: O HR:73 bpm ECG Measurements Heart Rate 73 AXIS AL [id number] P [id number] QRSd 106 QRS -5 QT 390 T 36 QTc 430 Conclusion Atrial fibrillation...V-rate 58- 90, irreg A-activity Abnormal R-wave progression, early transition...QRS area>0 in V2
== END 2024-03-28 08:02 | disposition home or self-care (01) ==
LOC: DI.CARD 08:02
PROVIDERS: PCP Nurse Practitioner Family; Visit Provider Internal Medicine Cardiovascular Disease
DX: I48.21 Permanent atrial fibrillation (principal)
CPT/HCPCS: 93010

== ENCOUNTER → 2024-03-28 10:42 | Outpatient (BNVA) | payer MEDICARE, SELFPAY | PROVIDERS: PCP Nurse Practitioner Family; Visit Provider Internal Medicine Cardiovascular Disease | DX: I10 Essential (primary) hypertension (principal); I48.21 Permanent atrial fibrillation | CPT/HCPCS: 93005; 99213 ==

== ENCOUNTER → 2024-04-29 08:42 | Outpatient (BNVA) | payer MEDICARE, SELFPAY | PROVIDERS: PCP Nurse Practitioner Family; Referring Provider Nurse Practitioner Family; Visit Provider Urology | DX: R31.0 Gross hematuria (principal) | CPT/HCPCS: 52000; 81003 ==

== ENCOUNTER 2024-09-20 02:41 | Outpatient (CLI) | payer MEDICARE, SELFPAY ==
[2024-09-20 12:33] LABS: Hemoglobin A1C 5.7 % (<5.7)
[2024-10-05 11:48] LABS: Testosterone, Free 6.41 ng/dL (3.08-11.3); Testosterone, Total 288 ng/dL (240-950)
== END 2024-09-20 02:42 | disposition home or self-care (01) ==
LOC: LOS 02:41
PROVIDERS: PCP Nurse Practitioner Family; Visit Provider Internal Medicine Endocrinology, Diabetes & Metabolism
DX: R73.03 Prediabetes (principal); R35.0 Frequency of micturition
CPT/HCPCS: 36415; 84153; 84402; 84403; 83036

== ENCOUNTER 2025-01-26 11:55 | Outpatient (CLI) | payer MEDICARE, MEDICAID, SELFPAY ==
[2025-01-26 16:53] LABS: Anion Gap 7.4 mmol/L (3-11); BUN 17 mg/dL (7-18); CO2 30.6 mmol/L (21.0-32.0); Calcium 8.9 mg/dL (8.5-10.1); Calculated LDL 73 mg/dL (<100); Chloride 104 mmol/L (98-107); Cholesterol 149 mg/dL (<200); Estimated GFR 56.93 (mL/min/1.73m2); Glucose 131 mg/dL (74-106); HDL Cholesterol 42 mg/dL (>or=40); Potassium 4.4 mmol/L (3.5-5.1); Sodium 142 mmol/L (136-145); TSH (W/Ref FT4) 3.78 uIU/mL (0.36-3.74); Triglyceride 174 mg/dL (<150)
[2025-01-27 18:11] LABS: PSA, Screening 0.5 ng/mL (<=6.5)
== END 2025-01-26 11:56 | disposition home or self-care (01) ==
LOC: LOS 11:57
PROVIDERS: PCP Nurse Practitioner Family; Visit Provider Nurse Practitioner Family
DX: E03.9 Hypothyroidism, unspecified (principal); Z13.6 Encounter for screening for cardiovascular disorders; Z13.1 Encounter for screening for diabetes mellitus; Z12.5 Encounter for screening for malignant neoplasm of prostate
CPT/HCPCS: 36415; 80048; 80061; 84153; 84439; 84443

== ENCOUNTER 2025-03-28 08:50 | Outpatient (CLI) | payer MEDICARE, MEDICAID, SELFPAY ==
--- NOTE | 2025-03-28 08:45 | RT.EKG_ITS ---
APPROVED REPORT Exam: Resting ECG Reason for Exam: afib Patient Location: O HR:81 bpm ECG Measurements Heart Rate 81 AXIS IN [id number] P [id number] QRSd 154 QRS 1 QT 358 T 43 QTc 416 Conclusion Atrial fibrillation...V-rate 73- 87, irreg A-activity
== END 2025-03-28 08:51 | disposition home or self-care (01) ==
LOC: DI.CARD 08:51
PROVIDERS: PCP Nurse Practitioner Family; Visit Provider Internal Medicine Cardiovascular Disease
DX: I48.21 Permanent atrial fibrillation (principal)
CPT/HCPCS: 93010

== ENCOUNTER → 2025-03-28 10:34 | Outpatient (BNVA) | payer MEDICARE, MEDICAID, SELFPAY | PROVIDERS: PCP Nurse Practitioner Family; Visit Provider Internal Medicine Cardiovascular Disease | DX: I48.21 Permanent atrial fibrillation (principal); I10 Essential (primary) hypertension; Z79.01 Long term (current) use of anticoagulants | CPT/HCPCS: 93005; 99213 ==